=== PATIENT | female | born 1985 | race Two or more races ===

== ENCOUNTER 2024-03-03 20:01 | Emergency (ER) | payer OTHER ==
[2024-03-03 20:06] VITALS: BP 102/68; PULSE 78; RESP 18; TEMP 97.8; BMI 26.0
[2024-03-03] MEDS ORDERED: LIDOCAINE 4% PATCH TP ONE (21:10)
[2024-03-03] MEDS ORDERED: METHOCARBAMOL 500 MG TABLET ONE (21:11)
[2024-03-03] MEDS ORDERED: KETOROLAC TROMETHAMINE 30 MG/1 ML VIAL ONE (21:11)
[2024-03-03] MEDS: LIDOCAINE 4% PATCH TP ONE (21:20)
[2024-03-03] MEDS: KETOROLAC TROMETHAMINE 30 MG/1 ML VIAL IM ONE (21:20)
[2024-03-03] MEDS: METHOCARBAMOL 500 MG TABLET PO ONE (21:21)
[2024-03-04] MEDS ORDERED: LIDOCAINE PATCH REMOVAL MC SCH (09:00)
== END 2024-03-03 22:57 | disposition home or self-care (01) ==
LOC: JERFT 20:01
PROC: 3E0233Z Introduction of Anti-inflammatory into Muscle, Percutaneous Approach (ICD-10-PCS; principal; 2024-03-03)
DX: S46.812A Strain of other muscles, fascia and tendons at shoulder and upper arm level, left arm, initial encounter (principal); M25.512 Pain in left shoulder; M54.2 Cervicalgia; V43.52XA Car driver injured in collision with other type car in traffic accident, initial encounter; Y92.410 Unspecified street and highway as the place of occurrence of the external cause
CPT/HCPCS: 73030-TC-LT-FY; 73090-TC-LT-FY; 73130-TC-LT-FY; 73562-TC-RT-FY; 84703; 99284-25